=== PATIENT | male | born 1975 | race Two or more races ===

== ENCOUNTER 2024-04-20 21:29 | Emergency (ER) | payer MEDICAID ==
[~2024-04-20] VITALS: Ht 170.2 cm; Wt 104.0 kg
[2024-04-20 21:35] VITALS: O2SAT 100
[2024-04-20 22:41] LABS: BASOPHILS % 0.7 % (0.0-2.0); DIFFERENTIAL COMMENT 0; EOSINOPHILS % 4.2 % (0.0-5.0); HEMATOCRIT. 45.1 % (42.0-52.0); HEMOGLOBIN. 14.5 g/dL (14.0-18.0); LYMPHOCYTES % 44.9 % (20.0-50.0); MEAN CORPUSCULAR HEMOGLOBIN 27.2 pg (28.0-32.0); MEAN CORPUSCULAR HGB CONC 32.1 g/dL (31.0-37.0); MEAN CORPUSCULAR VOLUME 84.9 fL (80.0-94.0); MEAN PLATELET VOLUME 9.1 fl (7.4-10.4); MONOCYTES % 12.3 % (2.0-8.0); NEUTROPHILS % 37.9 % (40.0-76.0); PLATELET 212 x1000/uL (130-400); RED BLOOD CELL COUNT 5.32 mill/uL (4.7-6.1); RED CELL DISTRIBUTION WIDTH 14.9 % (11.6-14.6); WHITE BLOOD COUNT 4.2 x1000/uL (4.5-11.0)
[2024-04-20 22:48] LABS: CHLORIDE 107 mEq/L (98-107); POTASSIUM 3.9 mEq/L (3.5-5.1); SODIUM 139 mEq/L (136-145)
[2024-04-20 22:49] LABS: CALCIUM 9.3 mg/dL (8.7-10.4); CARBON DIOXIDE 29 mEq/L (21-32)
[2024-04-20 22:54] LABS: CREATININE 1.2 mg/dL (0.6-1.3); GLUCOSE 107 mg/dL (70-105); UREA NITROGEN BLOOD 12 mg/dL (9-23)
[2024-04-20 22:55] LABS: TROPONIN I HIGH SENSITIVITY 5 ng/L (3.0-53)
[2024-04-21 01:00] VITALS: BP 143/79; PULSE 73; RESP 17; TEMP 36.55848; O2SAT 99
[2024-04-21 01:09] LABS: TROPONIN I HIGH SENSITIVITY 6 ng/L (3.0-53)
== END 2024-04-21 02:01 | disposition home or self-care (01) ==
LOC: ER 21:29
DX: R07.89 Other chest pain (principal); R42 Dizziness and giddiness; I10 Essential (primary) hypertension; I25.2 Old myocardial infarction; Z98.890 Other specified postprocedural states
CPT/HCPCS: 36415; 71045; 80048; 84484; 85025; 93005; 99285

== ENCOUNTER 2024-08-28 17:57 | Emergency (ER) | payer MEDICAID, OTHER ==
[~2024-08-28] VITALS: Ht 170.2 cm; Wt 109.0 kg
[~2024-08-28 17:57] MED LIST: ASPI-1406 PO; ATOR-2 PO; CLOP75TA33 PO; LISI20TA31; METO25TA6 PO
[2024-08-28 18:19] VITALS: TEMP 36.9; O2SAT 100
[2024-08-28 23:13] LABS: BASOPHILS % 0.9 % (0.0-2.0); EOSINOPHILS % 4.7 % (0.0-5.0); HEMATOCRIT. 41.6 % (42.0-52.0); HEMOGLOBIN. 13.9 g/dL (14.0-18.0); LYMPHOCYTES % 38.9 % (20.0-50.0); MEAN CORPUSCULAR HEMOGLOBIN 28.6 pg (28.0-32.0); MEAN CORPUSCULAR HGB CONC 33.4 g/dL (31.0-37.0); MEAN CORPUSCULAR VOLUME 85.5 fL (80.0-94.0); MONOCYTES % 12.2 % (2.0-8.0); NEUTROPHILS % 43.3 % (40.0-76.0); PLATELET 247 x1000/uL (130-400); RED BLOOD CELL COUNT 4.87 mill/uL (4.7-6.1); RED CELL DISTRIBUTION WIDTH 13.3 % (11.6-14.6); WHITE BLOOD COUNT 4.4 x1000/uL (4.5-11.0)
[2024-08-28 23:31] LABS: CHLORIDE 106 mEq/L (98-107); POTASSIUM 4.2 mEq/L (3.5-5.1); SODIUM 140 mEq/L (136-145)
[2024-08-28 23:32] LABS: CALCIUM 9.3 mg/dL (8.7-10.4); CARBON DIOXIDE 27 mEq/L (21-32)
[2024-08-28 23:37] LABS: GLUCOSE 108 mg/dL (70-105); UREA NITROGEN BLOOD 9 mg/dL (9-23)
[2024-08-28 23:38] LABS: TROPONIN I HIGH SENSITIVITY < 4 ng/L (3.0-53)
[2024-08-29] MEDS ORDERED: BENZ200C52 MT (01:19)
[2024-08-29 01:31] VITALS: BP 121/78; PULSE 68; RESP 14; O2SAT 100
[2024-08-29 01:54] LABS: TROPONIN I HIGH SENSITIVITY < 4 ng/L (3.0-53)
== END 2024-08-29 02:00 | disposition home or self-care (01) ==
LOC: ER 17:57
DX: J40 Bronchitis, not specified as acute or chronic (principal); R07.9 Chest pain, unspecified; I25.2 Old myocardial infarction; E78.00 Pure hypercholesterolemia, unspecified; I10 Essential (primary) hypertension; Z79.02 Long term (current) use of antithrombotics/antiplatelets; Z79.82 Long term (current) use of aspirin; Z79.899 Other long term (current) drug therapy; Z95.5 Presence of coronary angioplasty implant and graft
CPT/HCPCS: 80048; 85025; 84484 ×2; 36415 ×2; 71045; 93005; 99285; Z7610 ×2

== ENCOUNTER 2024-10-24 10:16 | Emergency (ER) | payer MEDICAID, OTHER ==
[~2024-10-24] VITALS: Ht 170.2 cm; Wt 109.0 kg
[~2024-10-24 10:16] MED LIST changes: +BENZ200C52 MT
[2024-10-24 10:19] VITALS: O2SAT 98
[2024-10-24 10:29] VITALS: BP 153/86; PULSE 61; RESP 14; TEMP 36.7; O2SAT 99
[2024-10-24 11:19] LABS: BASOPHILS % 0.5 % (0.0-2.0); EOSINOPHILS % 3.2 % (0.0-5.0); HEMATOCRIT. 44.4 % (42.0-52.0); HEMOGLOBIN. 14.4 g/dL (14.0-18.0); LYMPHOCYTES % 34.5 % (20.0-50.0); MEAN CORPUSCULAR HEMOGLOBIN 27.6 pg (28.0-32.0); MEAN CORPUSCULAR HGB CONC 32.4 g/dL (31.0-37.0); MEAN CORPUSCULAR VOLUME 85.3 fL (80.0-94.0); MEAN PLATELET VOLUME 9.4 fl (7.4-10.4); NEUTROPHILS % 50.8 % (40.0-76.0); PLATELET 205 x1000/uL (130-400); RED BLOOD CELL COUNT 5.21 mill/uL (4.7-6.1); RED CELL DISTRIBUTION WIDTH 13.7 % (11.6-14.6); WHITE BLOOD COUNT 4.5 x1000/uL (4.5-11.0)
[2024-10-24 11:26] LABS: CHLORIDE 105 mEq/L (98-107); POTASSIUM 4.2 mEq/L (3.5-5.1); SODIUM 141 mEq/L (136-145)
[2024-10-24 11:27] LABS: CALCIUM 9.1 mg/dL (8.7-10.4); CARBON DIOXIDE 26 mEq/L (21-32)
[2024-10-24 11:32] LABS: CREATININE 0.9 mg/dL (0.6-1.3); GLUCOSE 129 mg/dL (70-105); TROPONIN I HIGH SENSITIVITY 5 ng/L (3.0-53); UREA NITROGEN BLOOD 14 mg/dL (9-23)
[2024-10-24 11:34] LABS: ALANINE AMINOTRANSFERASE 49 IU/L (10-49); ALBUMIN 4.1 g/dL (3.2-4.8); ASPARTATE AMINOTRANSFERASE 32 IU/L (<34); BILIRUBIN TOTAL 0.5 mg/dL (0.1-1.0); PROTEIN TOTAL 6.9 g/dL (6.0-8.3)
[2024-10-24 14:03] LABS: TROPONIN I HIGH SENSITIVITY 4 ng/L (3.0-53)
== END 2024-10-24 14:30 | disposition home or self-care (01) ==
LOC: ER 10:16
DX: R42 Dizziness and giddiness (principal); I25.2 Old myocardial infarction; Z79.899 Other long term (current) drug therapy; Z95.5 Presence of coronary angioplasty implant and graft
CPT/HCPCS: 36415; 71045; 80053; 84484; 85025; 93005; 99285

== ENCOUNTER 2025-04-13 05:05 | Emergency (ER) | payer MEDICAID ==
[~2025-04-13] VITALS: Ht 170.2 cm; Wt 109.0 kg
[~2025-04-13 05:05] MED LIST changes: -LISI20TA31; +LISI20TA31 PO
[2025-04-13 05:22] VITALS: TEMP 36.8; O2SAT 96
[2025-04-13] MEDS: ACETAMINOPHEN 500MG TABLET PO ONE (06:02)
[2025-04-13] MEDS: TETANUS, DIPHTHERIA, PERTUSSIS VAC/PF 0.5ML (>10YR OLD) IM ONE (06:03)
[2025-04-13 07:01] VITALS: BP 145/91; PULSE 80; RESP 16; O2SAT 98
== END 2025-04-13 07:01 | disposition home or self-care (01) ==
LOC: ER 05:05
DX: S01.511A Laceration without foreign body of lip, initial encounter (principal); I25.2 Old myocardial infarction; Z79.01 Long term (current) use of anticoagulants; Z79.02 Long term (current) use of antithrombotics/antiplatelets; Z79.82 Long term (current) use of aspirin; Z79.899 Other long term (current) drug therapy; X58.XXXA Exposure to other specified factors, initial encounter; Y93.89 Activity, other specified; Y92.89 Other specified places as the place of occurrence of the external cause; Y99.8 Other external cause status
CPT/HCPCS: 12011; 71045; 90471; 90715; 99285

== ENCOUNTER 2025-05-15 06:23 | Inpatient (IN) | payer OTHER, MEDICAID ==
[~2025-05-15] VITALS: Ht 170.2 cm; Wt 107.5 kg
[2025-05-15 06:33] VITALS: O2SAT 98
[2025-05-15 08:08] LABS: BASOPHILS % 1.0 % (0.0-2.0); EOSINOPHILS % 1.4 % (0.0-5.0); HEMATOCRIT. 48.0 % (42.0-52.0); HEMOGLOBIN. 15.8 g/dL (14.0-18.0); LYMPHOCYTES % 26.4 % (20.0-50.0); MEAN PLATELET VOLUME 9.6 fl (7.4-10.4); MONOCYTES % 10.0 % (2.0-8.0); NEUTROPHILS % 61.2 % (40.0-76.0); PLATELET 192 x1000/uL (130-400); RED BLOOD CELL COUNT 5.68 mill/uL (4.7-6.1); RED CELL DISTRIBUTION WIDTH 13.8 % (11.6-14.6)
[2025-05-15 08:23] LABS: CREATININE 1.1 mg/dL (0.6-1.3); TROPONIN I HIGH SENSITIVITY 6 ng/L (3.0-53); UREA NITROGEN BLOOD 14 mg/dL (9-23)
[2025-05-15 10:00] VITALS: BP 126/73; PULSE 67; RESP 20; TEMP 36.2; O2SAT 99
[2025-05-15 11:07] VITALS: BP 126/73; PULSE 67; RESP 26; TEMP 36.2512
[2025-05-15 12:00] VITALS: BP 123/68; PULSE 69; RESP 18; TEMP 36.7; O2SAT 98
[2025-05-15] MEDS ORDERED: ACETAMINOPHEN 325MG TABLET PO PRN (13:00)
[2025-05-15] MEDS ORDERED: ONDANSETRON HCL 4MG/2ML INJ IV PRN (13:00)
[2025-05-15 16:00] VITALS: BP 128/77; PULSE 68; RESP 20; TEMP 36.5; O2SAT 99
[2025-05-15] MEDS: CLOPIDOGREL 75MG TABLET PO SCH (17:01)
[2025-05-15 17:19] LABS: TROPONIN I HIGH SENSITIVITY 5 ng/L (3.0-53)
[2025-05-15 20:00] VITALS: BP 131/70; PULSE 63; RESP 20; TEMP 36.7; O2SAT 97
[2025-05-15] MEDS: ATORVASTATIN CALCIUM 40MG TABLET PO SCH (21:39)
[2025-05-16] VITALS: BP 138/75; PULSE 67; RESP 20; TEMP 36.7; O2SAT 99
[2025-05-16 00:07] LABS: *AMPHETAMINES SCREEN URINE NEGATIVE (NEGATIVE); *BARBITURATES SCREEN URINE NEGATIVE (NEGATIVE); *BENZODIAZEPINES SCREEN URINE NEGATIVE (NEGATIVE); *COCAINE SCREEN URINE NEGATIVE (NEGATIVE); CANNABINOID URINE SCREEN NEGATIVE (NEGATIVE); ECSTASY MDMA SCREEN URINE NEGATIVE (NEGATIVE); METHADONE URINE SCREEN NEGATIVE (NEGATIVE); OPIATES URINE SCREEN NEGATIVE (NEGATIVE); PHENCYCLIDINE URINE SCREEN NEGATIVE (NEGATIVE)
[2025-05-16 04:00] VITALS: BP 118/73; PULSE 71; RESP 20; TEMP 36.6; O2SAT 96
[2025-05-16 08:00] VITALS: BP 140/88; PULSE 75; RESP 17; TEMP 36.2; O2SAT 95
[2025-05-16] MEDS: ASPIRIN 81MG TABLET PO SCH (09:11)
[2025-05-16] MEDS: CLOPIDOGREL 75MG TABLET PO SCH (09:11)
[2025-05-16] MEDS: LISINOPRIL 20MG TABLET PO SCH (09:11)
[2025-05-16 12:00] VITALS: BP 126/86; PULSE 81; RESP 29; TEMP 35.9; O2SAT 99
[2025-05-16 12:47] VITALS: BP 128/86; PULSE 81; RESP 19; TEMP 96.6
== END 2025-05-16 15:12 | DRG 313 ==
LOC: ER 06:45 → 7WST 08:26 → EDBEDREQTM 08:28 → EDBEDREQ 08:28 → ENRESERV 08:42
PROVIDERS: ADMIT Internal Medicine; ATTEND Internal Medicine
DX: R07.89 Other chest pain (principal); I50.22 Chronic systolic (congestive) heart failure; I11.0 Hypertensive heart disease with heart failure; E66.9 Obesity, unspecified; G47.33 Obstructive sleep apnea (adult) (pediatric); E78.5 Hyperlipidemia, unspecified; I25.10 Atherosclerotic heart disease of native coronary artery without angina pectoris; Z68.37 Body mass index [BMI] 37.0-37.9, adult; I25.2 Old myocardial infarction; Z79.02 Long term (current) use of antithrombotics/antiplatelets; Z79.82 Long term (current) use of aspirin; Z79.899 Other long term (current) drug therapy; Z95.5 Presence of coronary angioplasty implant and graft
CPT/HCPCS: 36415; 71045; 80048; 80305; 84484; 85025; 93005; 99285

== ENCOUNTER 2025-05-30 21:29 | Emergency (ER) | payer MEDICAID ==
[~2025-05-30] VITALS: Ht 172.7 cm; Wt 111.0 kg
[2025-05-30 22:22] VITALS: O2SAT 98
[2025-05-30 23:30] VITALS: BP 136/73; PULSE 64; RESP 16; TEMP 36.5; O2SAT 97
== END 2025-05-30 23:35 | disposition home or self-care (01) ==
LOC: ER 21:29
DX: T50.901A Poisoning by unspecified drugs, medicaments and biological substances, accidental (unintentional), initial encounter (principal); Z79.899 Other long term (current) drug therapy; X58.XXXA Exposure to other specified factors, initial encounter; Y93.89 Activity, other specified; Y92.89 Other specified places as the place of occurrence of the external cause; Y99.8 Other external cause status
CPT/HCPCS: 99282